=== PATIENT | male | born 1930 | race Caucasian/White ===

== ENCOUNTER → 2016-05-26 | Outpatient (CLI) | payer OTHER ==
[~2016-05-26] MED LIST: ALPR.5 PO; ATOR40TA16 PO; GABA100C4 PO; HYDR-3516 PO; HYDR50TA15 PO; IRBE300T44 PO; LEVO25TA4 PO; METO50TA PO; TAMS0.4C4 PO
[2016-05-26 11:02] LABS: HEMATOCRIT 41.7 % (39.0-51.0); MEAN CELL VOLUME 96.8 FL (80.0-100.0); MEAN CORPUSCULAR HEMOGLOBIN 31.4 PG (27.0-34.0); MEAN CORPUSCULAR HGB CONC 32.4 % (32.0-36.0); PLATELET COUNT 178 TH/MM3 (150-450); RED BLOOD COUNT 4.31 MIL/MM3 (4.50-5.90); RED CELL DISTRIBUTION WIDTH 14.7 % (11.6-17.2); REVIEW FLAG FINAL; WHITE BLOOD COUNT 4.1 TH/MM3 (4.0-11.0)
[2016-05-26 11:14] LABS: APTT (PATIENT) 26.6 SEC (24.3-30.1); PROTHROMBIN TIME - PATIENT 10.8 SEC (9.8-11.6)
== END ==
LOC: CLAB 10:34
PROVIDERS: ATTEND Internal Medicine Pulmonary Disease
DX: Z01.812 Encounter for preprocedural laboratory examination (principal); Z85.118 Personal history of other malignant neoplasm of bronchus and lung
CPT/HCPCS: 36415; 85027; 85610; 85730

== ENCOUNTER 2016-05-29 07:57 | Day surgery (SDC) | payer OTHER ==
[2016-05-29] VITALS (8 sets, daily range): BP systolic 135–170; BP diastolic 76–89; PULSE 66–94; RESP 18–20; TEMP 98–98.1; O2SAT 92–96
[~2016-05-29] VITALS: Ht 180.3 cm; Wt 102.3 kg
[2016-05-29] MEDS ORDERED: METO50TA PO (08:28)
[2016-05-29] MEDS ORDERED: TAMS0.4C4 PO (08:28)
[2016-05-29] MEDS ORDERED: HYDR-3516 PO (08:28)
[2016-05-29] MEDS ORDERED: ALPR.5 PO (08:28)
[2016-05-29] MEDS ORDERED: HYDR50TA15 PO (08:28)
[2016-05-29] MEDS ORDERED: IRBE300T44 PO (08:28)
[2016-05-29] MEDS ORDERED: ATOR40TA16 PO (08:28)
[2016-05-29] MEDS ORDERED: GABA100C4 PO (08:28)
[2016-05-29] MEDS ORDERED: LEVO25TA4 PO (08:28)
[2016-05-29] MEDS ORDERED: LIDOCAINE 1%/EPINEPHrine 1:100,000 SOLN 20 ML VIAL ONE (09:29)
[2016-05-29] MEDS ORDERED: fentaNYL CITRATE 250 MCG/5 ML AMP ONE (10:08)
[2016-05-29] MEDS ORDERED: MIDAZOLAM HCL 5 MG/5 ML VIAL ONE (10:08)
[2016-05-29] MEDS ORDERED: SODIUM CHLOR 0.9% 1000 ML INJ 1,000 ML IV SCH (10:30)
--- NOTE | 2016-05-29 10:36 | PD.RAD ---
Post Procedure Progress Note Pre Procedure Diagnosis: (1) Mass of left lung Post Procedure Diagnosis: (1) Mass of left lung Procedure Date: May 29, 2016 Supervising Radiologist: Dontae Ricks Anesthesia: Local, Conscious Sedation Plan of Activity Patient to Unit: [facility] Patient Condition: Good Additional Comments: Successful CT guided lung biopsy. No pneumothorax on follow up CT CXR pending. Dictated report to follow. See PACS Report for procedural detail/treatment Dontae Ricks MD May 29, 2016 10:36
[2016-05-29] MEDS ORDERED: oxyCODONE/ACETAMINOPHEN 5 MG/325 MG TAB PO PRN (10:45)
--- NOTE | 2016-05-29 11:54 | RADRPT ---
EXAM DATE/TIME: 05/29/2016 11:22 [facility] COMPARISON: CT NEEDLE BIOPSY LUNG, LEFT, May 29, 2016, 10:11. INDICATIONS : Evaluate for pneumothorax. Post lung biopsy MEDICAL HISTORY : None. SURGICAL HISTORY : None. ENCOUNTER: Initial ACUITY: 1 day PAIN SCORE: 0/10 LOCATION: Left chest FINDINGS: I. ratory portable view of the chest was performed in erect position status post left lung biopsy. N o evidence of pneumothorax. Moderate tortuosity descending thoracic aorta. Both hemidiaphragms are well delineated.CONCLUSION: No evidence of pneumothorax status post left lung biopsy. Justin Pulido MD on May 29, 2016 at 11:52 Board Certified Radiologist. This report was verified electronically.
--- NOTE | 2016-05-29 13:04 | RADRPT ---
EXAM DATE/TIME: 05/29/2016 10:11 [facility] COMPARISON: No previous studies available for comparison. INDICATIONS : Lung nodule. History of lung cancer. SEDATION TIME: 30 minutes BIOPSY SITE: Left Lung MEDICATION(S): 1.) 2 mg midazolam (Versed) IV 2.) 75 mcg fentanyl (Sublimaze) IV DEVICE(S): 1.) 20 gauge Temno core biopsy needle 2.) MEDICAL HISTORY : Chronic obstructive pulmonary disease. Hypertension. Lung cancer. SURGICAL HISTORY : Right upper lobectomy. ENCOUNTER: Initial ACUITY: 1 day PAIN SCORE: 0/10 LOCATION: Left chest A total of two core specimen(s) were obtained and sent to the laboratory for pathologic evaluation. PROCEDURE: 1. CT guided lung biopsy. 2. Conscious sedation with continuous EKG and oximetry monitoring. 3. EKG and oximetry remained stable throughout the procedure. Prior to the procedure informed consent was obtained. Any appropriate prior imaging studies were rev iewed. Using automated exposure control and adjustment of the mA and/or kV according to patient size, radiation dose was kept as low as reasonably achievable to obtain optimal diagnostic quality images. The site was prepped in a sterile fashion. Full sterile technique was used, including cap, mask, uday rile gloves and gown and a large sterile sheet. Hand hygiene and 2% chlorhexidine and/or betadine/al cohol prep was utilized per protocol for cutaneous antisepsis. The skin and subcutaneous tissues wer e infiltrated with local anesthetic solution. With CT guidance the previously identified target was localized. Biopsy was performed using the presc ribed needle as above. Adequate hemostasis was obtained with compression at the puncture site. Follow-up CT scan reveals no pneumothorax. Conscious sedation was performed with the prescribed dosages and duration as above in the presence of an independent trained radiology nurse to assist in the monitoring of the patient. EKG and oximetry remained stable throughout the procedure. The patient tolerated the procedure well and there were no complications. The patient was sent to Radiology Outpatient Unit in stable condition. CONCLUSION: Uncomplicated CT guided biopsy. Dontae Ricks MD on May 29, 2016 at 12:35 Board Certified Radiologist. This report was verified electronically.
== END 2016-05-29 14:45 | disposition home or self-care (01) ==
LOC: HRAD 07:57 → HRIP 08:03 → HRAD 14:45
PROVIDERS: ATTEND Internal Medicine Pulmonary Disease
DX: C34.92 Malignant neoplasm of unspecified part of left bronchus or lung (principal); Z85.118 Personal history of other malignant neoplasm of bronchus and lung; J44.9 Chronic obstructive pulmonary disease, unspecified; I10 Essential (primary) hypertension
CPT/HCPCS: 32405; 71010; 77012; 88305; 88341; 88342; J2250; J3010; J7030